=== PATIENT | male | born 1935 | race Caucasian/White ===

== ENCOUNTER 2020-05-16 05:52 | Observation (INO) | payer MEDICARE, OTHER ==
[2020-05-16] MEDS ORDERED: Heparin 10,000 UNITS/ 10 ML VIAL ONE (06:36)
[2020-05-16] MEDS ORDERED: Lidocaine 1% (PF) 30 ML VIAL ONE (06:41)
[2020-05-16] MEDS ORDERED: Midazolam HCl 2 mg/2 ml Vial ONE (07:06)
[2020-05-16] MEDS ORDERED: Fentanyl 100 MCG/2 ML VIAL ONE (07:07)
[2020-05-16 07:08] LABS: Cardiac Risk 3.8 (Less than 4.5)
[2020-05-16] MEDS ORDERED: Protamine Sulfate 50 MG/5 ML VIAL ONE (07:45)
[2020-05-16] MEDS ORDERED: Sodium Chloride 0.9% 1,000 ML IV SCH (08:30)
[2020-05-16] MEDS ORDERED: Nitroglycerin 0.4 MG TAB (25 Tab Bottle) SL PRN (08:30)
[2020-05-16] MEDS ORDERED: Acetaminophen/Codeine 30-300mg Tablet PO PRN ×2 (08:30)
[2020-05-16] MEDS ORDERED: Finasteride 5 MG TAB PO SCH (09:00)
[2020-05-16] MEDS ORDERED: Cholecalciferol 1,000 UNITS (25 MCG) TAB PO SCH (09:00)
[2020-05-16] MEDS ORDERED: Rosuvastatin 5 MG TAB PO SCH (09:00)
[2020-05-16] MEDS ORDERED: Furosemide 20 MG TAB PO SCH (09:00)
[2020-05-16] MEDS ORDERED: Ubidecarenone 50 MG CAP PO SCH (09:00)
--- NOTE | 2020-05-16 10:02 | HP ---
HISTORY OF PRESENT ILLNESS: Prasanna Florian is an 84-year-old white male, who was initially evaluated in July 2018 when he was referred by Dr. Wan for evaluation of irregular heartbeat and a heart murmur. He had a previous history approximately 15 years ago of having some exertional chest discomfort. Ultimately, he underwent evaluation and was found to be in atrial fibrillation and had hyperthyroidism. He was treated with radioactive iodine and has not had any further episodes of atrial fibrillation according to the patient. He underwent 30 day monitor when he was referred to [place]. No significant arrhythmias were detected. He also missed appointments for an echocardiogram, but finally had that done in October 2018. He was found to have ejection fraction of 55% to 60% with moderate mitral regurgitation, aortic valvular sclerosis, moderate aortic regurgitation, mild tricuspid regurgitation, mild pulmonic regurgitation. In October 2019, he underwent repeat echo and it was found that his ejection fraction had fallen to 45% to 50%, evidence for diastolic dysfunction, moderate aortic insufficiency, severe mitral regurgitation, severe tricuspid regurgitation. With that finding, he was started on furosemide 20 mg daily. He then returned in April 2020 for repeat echo, which revealed his ejection fraction had improved to 50% to 55% and that he only had moderate mitral regurgitation. He also underwent cardiac PET scan for evaluation of his fall in ejection fraction. This revealed moderate ischemia of the mid anterior wall and a large fixed defect in the distal anterior wall, apex and distal septum. With that finding, it is recommended that he undergo cardiac catheterization. Risks were discussed including , myocardial infarction, dye reaction, vascular injury, CVA, transfusion, limb loss, renal loss, etc. We also discussed possibility of stenting. He agrees to proceed. PAST MEDICAL HISTORY: History of hyperthyroidism and atrial fibrillation 15 years ago. Hypercholesterolemia; currently hypothyroid, on replacement. OPERATIONS: None. MEDICATIONS: 1. Atorvastatin 10 mg daily, however, he discontinued this three weeks ago due to muscle weakness. 2. Furosemide 20 mg q.a.m. 3. Finasteride 5 mg daily. 4. Levothyroxine 112 mcg daily. 5. Vitamin D. 6. Co Q 10 ALLERGIES: PENICILLIN. SOCIAL HISTORY: He does not smoke or drink. REVIEW OF SYSTEMS: A 10-point review of systems is unremarkable. Specifically, he denies any chest discomfort except for 15 years ago and denies any shortness of breath. PHYSICAL EXAMINATION: VITAL SIGNS: Blood pressure 125/56, pulse of 70. HEENT: PERRL. NECK: Supple. CHEST: Clear. CARDIAC: S1 and S2 normal without any S3 or S4. There is a 1/6 systolic murmur. Carotid upstrokes normal without bruits. ABDOMEN: Normal bowel sounds without tenderness or organomegaly. EXTREMITIES: Revealed no clubbing, cyanosis, or edema. NEUROLOGIC: Grossly intact. SKIN: Warm and dry. LABORATORY DATA: Hemoglobin is 15.9, hematocrit 47.6, white count 8100, platelets 183,000. Sodium 140, potassium 4.2, chloride 105, carbon dioxide 25, BUN 18, creatinine 1.10. TSH is normal. LDL has gone from 70 to 107 with stopping the atorvastatin. COVID is negative. IMPRESSION: 1. Mid anterior ischemia and large distal anterior apical and distal septal fixed defect for cardiac catheterization. 2. Moderate mitral regurgitation at the present time, although it has been severe in the past. He had a drop in his ejection fraction of 45% to 50% and had more severe mitral regurgitation. He was placed on low-dose furosemide. 3. Aortic sclerosis with moderate aortic insufficiency at times. 4. Hypercholesterolemia with muscle aches and weakness with atorvastatin 10 mg. 5. History of atrial fibrillation when he had hyperthyroidism 15 years ago. 6. 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 He is adequately replaced. RECOMMENDATIONS: Mr. Florian will undergo cardiac catheterization and indicated procedures. He started the Co Q 10 after he stopped the Atorvastatin 10. He will continue the Co Q 10 and start Rosuvastatin 5 qd. Job ID: [id number] [facility]
[2020-05-16 12:06] VITALS: BMI 23.1
[2020-05-16] MEDS ORDERED: Iopamidol 370 76% 100 ML VIAL ONE (12:31)
[2020-05-16] MEDS ORDERED: Iopamidol 370 76% 50 ML VIAL FS ONE (12:31)
[2020-05-16 16:22] VITALS: BP 158/68; TEMP 97.4
--- NOTE | 2020-05-16 20:25 | CON ---
DATE OF CONSULTATION: 05/16/2020 HISTORY OF PRESENT ILLNESS: Mr. Florian is an 84-year-old, almost 85, who approximately 15 years ago had a bout of atrial fibrillation associated with hyperthyroidism. He underwent radioiodine ablation. He has had no rhythm disturbances since. He underwent a cardiac PET scan this fall, which revealed moderate ischemia of the anterior wall and a large fixed defect in the distal anterior wall apex and distal septum. With those findings, he underwent cardiac catheterization today. The patient has had no chest pain, shortness of breath, fatigue, change in activity level, or other symptom related to his heart. Cardiac catheterization today has revealed a chronically occluded LAD, which is the source of his fixed defect. He has a large left dominant system. He has an OM2 and terminal OM stenoses. His right is diminutive. Ejection fraction is 40% to 45%. I have been asked to see him to discuss coronary artery bypass grafting. PAST MEDICAL HISTORY: 1. Hyperthyroidism status post ablation. 2. Atrial fibrillation history. 3. Dyslipidemia. PAST SURGICAL HISTORY: None. CURRENT MEDICATIONS: 1. Atorvastatin 10 mg daily. 2. Lasix 20 mg q.a.m. 3. Finasteride 5 mg daily. 4. Levothyroxine 112 mcg daily. 5. Vitamin D. 6. CoQ10. ALLERGIES: PENICILLIN. SOCIAL HISTORY: He does not use alcohol or tobacco. He is retired. Lives in [facility]. REVIEW OF SYSTEMS: A 10-point review of systems is performed is negative except as above. PHYSICAL EXAMINATION: GENERAL: This is a very pleasant gentleman without current complaint. VITAL SIGNS: Height is 5 feet and 6 inches, weight is 143 pounds. Temperature is 97.4 and blood pressure is 158/68. LUNGS: Clear bilaterally. HEART: Rhythm is regular. NECK: Supple without bruit. ABDOMEN: Soft and nontender without mass. EXTREMITIES: No edema, VASCULAR: Palpable carotid, radial, femoral, and posterior tibial pulses bilaterally. VENOUS: There are no venous varicosities. PSYCHIATRIC: He is awake, alert, and oriented to person, place, and time. ASSESSMENT AND PLAN: A pleasant 84-year-old gentleman, who is currently asymptomatic. I had a long discussion with he and his son. His participated over the following. He does have significant coronary artery disease. His left anterior descending in my opinion is not really consequential as he has a fixed defect on his PET scan. The OM branches could be revascularized, but again with him being asymptomatic, I am not sure what our end point is in an 85-year-old gentleman. I have told him my concerns. He is going to go home and discuss this further with his family. I have offered to schedule a followup with him and he will call when he is ready. Job ID: [id number]
[2020-05-16] MEDS ORDERED: Pramipexole Di-HCl 0.25 MG TAB PO SCH (21:00)
[2020-05-17] MEDS ORDERED: Levothyroxine Sodium 112 MCG TAB PO SCH (06:00)
[2020-05-17] MEDS ORDERED: FLU VACC QS2020-21(65YR UP)/PF 240 MCG/0.7 ML SYRINGE IM ONE (09:00)
== END 2020-05-16 19:10 | disposition home or self-care (01) ==
LOC: CCL 05:52 → 2NO 10:34
PROVIDERS: ADMIT Internal Medicine Cardiovascular Disease; ATTEND Internal Medicine Cardiovascular Disease
PROC: 4A023N8 Measurement of Cardiac Sampling and Pressure, Bilateral, Percutaneous Approach (ICD-10-PCS; principal; 2020-05-16)
PROC: B2111ZZ Fluoroscopy of Multiple Coronary Arteries using Low Osmolar Contrast (ICD-10-PCS; 2020-05-16)
DX: I25.10 Atherosclerotic heart disease of native coronary artery without angina pectoris (principal); I25.82 Chronic total occlusion of coronary artery; I34.0 Nonrheumatic mitral (valve) insufficiency; I35.1 Nonrheumatic aortic (valve) insufficiency; E78.00 Pure hypercholesterolemia, unspecified; E03.9 Hypothyroidism, unspecified; N40.1 Benign prostatic hyperplasia with lower urinary tract symptoms; E80.4 Gilbert syndrome; G47.33 Obstructive sleep apnea (adult) (pediatric); Z79.899 Other long term (current) drug therapy; Z88.0 Allergy status to penicillin
CPT/HCPCS: 80061; 85347; 93460; 99152; 99153; G0378; J1644; J2001; J2250; J2720; J3010; Q9967